=== PATIENT | female | born 1950 | race Caucasian/White ===

== ENCOUNTER 2018-02-05 10:40 | Outpatient (CLI) | payer MEDICARE, BC ==
[2016-06-04 19:35] VITALS: O2SAT 99
[2018-02-05 22:32] LABS: *RHEUMATOID FACTOR <10 IUnits/mL (<30)
[2018-02-07 07:06] LABS: *HLA-B27 Negative
[2018-02-07 10:23] LABS: *LYME DISEASE SCREEN Negative (Negative)
[2018-02-07 12:27] LABS: *ANA SCREEN 0.1 U
== END 2018-02-05 10:41 | disposition home or self-care (01) | DRG 556 ==
LOC: CONVCARE 10:40
PROVIDERS: ATTEND Orthopaedic Surgery
DX: M25.551 Pain in right hip (principal); M47.9 Spondylosis, unspecified; M70.61 Trochanteric bursitis, right hip
CPT/HCPCS: 36415; 72120; 73502; 85651

== ENCOUNTER 2018-02-27 07:07 | Day surgery (SDC) | payer MEDICARE, BC ==
[2018-02-27 07:44] VITALS: RESP 16
[2018-02-27] MEDS ORDERED: BUPIVACAINE HCL 0.5% MPF 10 ML SOL ONE (07:57)
[2018-02-27] MEDS: DEXAMETHASONE SOD PHOS PF 10 MG/ML SOL IJ ONE ×2 (08:12→08:27)
[2018-02-27 08:43] VITALS: PULSE 77; TEMP 97.4; O2SAT 98
[2018-02-27 09:00] VITALS: BP 160/91
== END 2018-02-27 09:03 | disposition home or self-care (01) | DRG 556 ==
LOC: SURG 07:07
PROVIDERS: ATTEND Nurse Anesthetist, Certified Registered
DX: M25.551 Pain in right hip (principal); E11.9 Type 2 diabetes mellitus without complications; M48.08 Spinal stenosis, sacral and sacrococcygeal region
CPT/HCPCS: 82962; J1100

== ENCOUNTER 2018-04-18 08:48 | Day surgery (SDC) | payer MEDICARE, BC ==
[2018-04-18] MEDS ORDERED: DIAZEPAM 5 MG TAB ONE (08:55)
[2018-04-18] MEDS ORDERED: LIDOCAINE HCL 1% MPF 30 SOL ONE (09:28)
[2018-04-18] MEDS ORDERED: LIDOCAINE HCL 2% MPF 10 ML SOL ONE (09:28)
[2018-04-18 09:38] VITALS: RESP 16
[2018-04-18 10:19] VITALS: BP 133/81; PULSE 72; TEMP 99.3; O2SAT 97
== END 2018-04-18 10:45 | disposition home or self-care (01) | DRG 554 ==
LOC: SURG 08:48
PROVIDERS: ATTEND Nurse Anesthetist, Certified Registered
DX: M12.88 Other specific arthropathies, not elsewhere classified, other specified site (principal)
CPT/HCPCS: A9270-GY; J2001

== ENCOUNTER 2018-04-25 14:36 | Day surgery (SDC) | payer MEDICARE, BC ==
[2018-04-25] MEDS ORDERED: DIAZEPAM 5 MG TAB ONE (14:47)
[2018-04-25] MEDS ORDERED: BUPIVACAINE HCL 0.5% MPF 10 ML SOL ONE (14:54)
[2018-04-25] MEDS ORDERED: LIDOCAINE HCL 1% MPF 30 SOL ONE (14:55)
[2018-04-25 15:49] VITALS: BP 162/84; PULSE 85; RESP 16; TEMP 99; O2SAT 95
== END 2018-04-25 16:06 | disposition home or self-care (01) | DRG 554 ==
LOC: SURG 14:36
PROVIDERS: ATTEND Nurse Anesthetist, Certified Registered
DX: M12.88 Other specific arthropathies, not elsewhere classified, other specified site (principal)
CPT/HCPCS: A9270-GY; J2001

== ENCOUNTER 2018-05-29 13:31 | Day surgery (SDC) | payer MEDICARE, BC ==
[2018-05-29] MEDS: FENTANYL 100MCG/2ML SOL ONE ×2 (11:59→15:23)
[2018-05-29] MEDS ORDERED: ONDANSETRON HCL 4 MG/2 ML SOL ONE (15:04)
[2018-05-29] MEDS ORDERED: ONDANSETRON HCL 4 MG/2 ML SOL IV ONE (15:09)
[2018-05-29] MEDS ORDERED: LIDOCAINE HCL 1% MPF 30 SOL ONE (15:12)
[2018-05-29] MEDS ORDERED: TRIAMCINOLONE ACETONIDE 40 MG/ML SUS ONE (15:12)
[2018-05-29] MEDS ORDERED: BUPIVACAINE HCL 0.25% MPF 30 ML SOL INFIL ONE (15:12)
[2018-05-29] MEDS ORDERED: LIDOCAINE HCL 2% MPF 10 ML SOL ONE (15:12)
[2018-05-29] MEDS: MIDAZOLAM 2 MG/2 ML SOL ONE ×2 (15:22→15:58)
[2018-05-29 16:37] VITALS: BP 100/56; PULSE 77; RESP 20; TEMP 97.4; O2SAT 96
== END 2018-05-29 16:55 | disposition home or self-care (01) | DRG 554 ==
LOC: SURG 13:31
PROVIDERS: ATTEND Nurse Anesthetist, Certified Registered
DX: M12.88 Other specific arthropathies, not elsewhere classified, other specified site (principal)
CPT/HCPCS: 82962; J2250; J2405; J3010; J2001; J3300

== ENCOUNTER 2018-06-06 13:19 | Day surgery (SDC) | payer MEDICARE, BC ==
[2018-06-06] MEDS ORDERED: SODIUM CHLORIDE 0.9% FLUSH 10 ML SOL IV ONE ×2 (14:08→14:15)
[2018-06-06] MEDS ORDERED: ONDANSETRON HCL 4 MG/2 ML SOL ONE (14:11)
[2018-06-06] MEDS ORDERED: LIDOCAINE HCL 2% MPF 10 ML SOL ONE (14:13)
[2018-06-06] MEDS ORDERED: BUPIVACAINE HCL 0.25% MPF 30 ML SOL INFIL ONE (14:13)
[2018-06-06] MEDS ORDERED: LIDOCAINE HCL 1% MPF 30 SOL ONE (14:13)
[2018-06-06] MEDS: FENTANYL 100MCG/2ML SOL ONE ×3 (14:25→15:20)
[2018-06-06] MEDS: MIDAZOLAM 2 MG/2 ML SOL ONE ×2 (14:25→14:51)
[2018-06-06] MEDS: TRIAMCINOLONE ACETONIDE 40 MG/ML SUS ONE ×2 (15:20→15:24)
[2018-06-06 15:40] VITALS: BP 134/68; PULSE 79; RESP 18; TEMP 97.1; O2SAT 98
== END 2018-06-06 16:02 | disposition home or self-care (01) | DRG 554 ==
LOC: SURG 13:19
PROVIDERS: ATTEND Nurse Anesthetist, Certified Registered
DX: M12.88 Other specific arthropathies, not elsewhere classified, other specified site (principal); E11.9 Type 2 diabetes mellitus without complications
CPT/HCPCS: J2250; J2405; J3010; J2001; J3300

== ENCOUNTER 2018-06-28 06:44 | Emergency (ER) | payer MEDICARE, BC ==
[2018-06-28 06:56] VITALS: TEMP 96.8
[2018-06-28] MEDS ORDERED: ONDANSETRON HCL 4 MG/2 ML SOL IV ONE (07:14)
[2018-06-28] MEDS ORDERED: SODIUM CHLORIDE 0.9% 1000ML 1,000 ML IV ONE (07:14)
[2018-06-28 07:30] LABS: BASOPHILS % (AUTO) 0 % (0-3); EOSINOPHILS % (AUTO) 1 % (0-9); HEMATOCRIT 39 % (35-47); LYMPHOCYTES % (AUTO) 9.9 % (10-50); MEAN CORPUSCULAR HEMOGLOBIN 28.5 pg (27.0-32.0); MEAN CORPUSCULAR HGB CONC 33.3 gm/dl (32.0-36.0); MEAN CORPUSCULAR VOLUME 86 fL (81-99); MONOCYTES % (AUTO) 3.9 % (0-12); NEUTROPHILS % (AUTO) 84.9 % (37-80)
[2018-06-28] MEDS ORDERED: ONDANSETRON HCL 4 MG/2 ML SOL ONE (07:32)
[2018-06-28 07:38] LABS: CALCIUM 8.9 mg/dl (8.5-10.1); CARBON DIOXIDE 26.8 mEq/L (21-32); CREATININE 0.62 mg/dl (0.60-1.00)
[2018-06-28 08:46] VITALS: BP 153/104; PULSE 90; RESP 20; O2SAT 96
== END 2018-06-28 08:35 | disposition home or self-care (01) | DRG 641 ==
LOC: ED 06:44
DX: E86.0 Dehydration (principal); E11.9 Type 2 diabetes mellitus without complications; R00.0 Tachycardia, unspecified
CPT/HCPCS: 36415; 80048; 85025; 96365; 96374; 99282; 99283; J2405

== ENCOUNTER 2018-10-01 03:29 | Inpatient (IN) | payer BC ==
[2018-10-01] MEDS ORDERED: MORPHINE SULFATE 10 MG/ML SOL IV ONE (03:46)
[2018-10-01] MEDS ORDERED: FENTANYL 100MCG/2ML SOL IV ONE ×2 (03:59→19:00)
[2018-10-01 04:01] LABS: BASOPHILS % (AUTO) 0 % (0-3); EOSINOPHILS % (AUTO) 0 % (0-9); HEMATOCRIT 33 % (35-47); LYMPHOCYTES % (AUTO) 3.1 % (10-50); MEAN CORPUSCULAR VOLUME 82 fL (81-99); MONOCYTES % (AUTO) 3.7 % (0-12); NEUTROPHILS % (AUTO) 92.9 % (37-80)
[2018-10-01] MEDS ORDERED: FENTANYL 100MCG/2ML SOL ONE ×2 (04:05→16:45)
[2018-10-01] MEDS ORDERED: SODIUM CHLORIDE 0.9% 1000ML 1,000 ML IV SCH (04:15)
[2018-10-01 04:19] LABS: ALBUMIN 2.8 gm/dl (3.4-5.0); BILIRUBIN,TOTAL 1.7 mg/dl (0.2-1.0); CARBON DIOXIDE 25.2 mEq/L (21-32); CREATININE 0.94 mg/dl (0.60-1.00); POTASSIUM 3.7 mMol/L (3.5-5.1); TOTAL PROTEIN 6.2 gm/dl (6.4-8.2)
[2018-10-01] MEDS ORDERED: CEFTRIAXONE 1 GM PDS 2 GM in SODIUM CHLORIDE 0.9% 100 ML 100 ML IV ONE (05:57)
[2018-10-01] MEDS ORDERED: ONDANSETRON HCL 4 MG/2 ML SOL IV PRN ×2 (05:58→09:13)
[2018-10-01] MEDS: SODIUM CHLORIDE 0.9% 1000ML 1,000 ML IV SCH ×3 (06:00→15:40)
[2018-10-01] MEDS ORDERED: CEFTRIAXONE 1 GM PDS ONE ×2 (06:20→06:22)
[2018-10-01 06:37] LABS: APPEARANCE,URINE Cloudy; BILIRUBIN,URINE 2+ (NEGATIVE); COLOR,URINE Red; GLUCOSE, URINE (UA) 2+ (NEGATIVE); KETONES,URINE 1+ (NEGATIVE); LEUKOCYTE ESTERASE ,URINE 3+ (NEGATIVE); NITRATE,URINE POSITIVE (NEGATIVE); OCCULT BLOOD,URINE 3+ (NEG-TRACE)
[2018-10-01 06:50] LABS: LACTIC ACID 1.1 mMol/L (0.0-2.0)
[2018-10-01] MEDS ORDERED: KETOROLAC TROMETHAMINE 30 MG/ML SOL IV ONE (06:56)
[2018-10-01] MEDS ORDERED: KETOROLAC TROMETHAMINE 30 MG/ML SOL ONE (06:57)
[2018-10-01 06:58] LABS: BACTERIA UNABLE (< 1+); CRYSTALS UNABLE (0-3 AVE/HPF); EPITHELIAL CELLS UNABLE TO QUANTITATE (SQUAMOUS); RBC,URINE PACKED FIELDS (0-3AV/HPF); WBC,URINE PACKED FIELDS (0-5AV/HPF)
[2018-10-01 07:00] LABS: ALCOHOL < 0.003 gm/dl (0.000-0.08); TROP I < 0.017 ng/ml (0.000-0.056)
[2018-10-01 07:09] LABS: ICTOTEST,URINE NEGATIVE (NEGATIVE)
[2018-10-01] MEDS ORDERED: NOVOLOG 70/30 FLEXPEN SC ONE (07:10)
[2018-10-01] MEDS ORDERED: NOVOLOG FLEXPEN SC SCH ×2 (08:00→12:00)
[2018-10-01] MEDS ORDERED: APAP/HYDROCODONE 1 EACH TABLET PO PRN (09:12)
[2018-10-01] MEDS ORDERED: SODIUM CHLORIDE 0.9% 500 ML SOL IV ONE (10:48)
[2018-10-01] MEDS ORDERED: NOVOLOG FLEXPEN SC ONE (10:50)
[2018-10-01] MEDS ORDERED: ACETAMINOPHEN 500 MG 500 MG TAB PO PRN (12:06)
[2018-10-01] MEDS ORDERED: MECLIZINE HYDROCHLORIDE 12.5 MG TAB PO PRN (12:06)
[2018-10-01] MEDS ORDERED: IPRATROPIUM BROMIDE NS PRN (12:06)
[2018-10-01] MEDS: NOVOLOG FLEXPEN SC SCH ×3 (12:10→14:13)
[2018-10-01 14:18] VITALS: RESP 24
[2018-10-01] MEDS ORDERED: METOPROLOL TARTRATE 50 MG TAB PO ONE (15:00)
[2018-10-01] MEDS ORDERED: ENOXAPARIN 100 MG SOL SC SCH (16:00)
[2018-10-01] MEDS ORDERED: DEXTROSE 50% 1 VIAL SOL IV ONE (16:41)
[2018-10-01 16:44] LABS: BASOPHILS % (AUTO) 0 % (0-3); EOSINOPHILS % (AUTO) 1 % (0-9); HEMATOCRIT 34 % (35-47); LYMPHOCYTES % (AUTO) 3.1 % (10-50); MEAN CORPUSCULAR HEMOGLOBIN 26.8 pg (27.0-32.0); MEAN CORPUSCULAR HGB CONC 32.3 gm/dl (32.0-36.0); MEAN CORPUSCULAR VOLUME 83 fL (81-99); MONOCYTES % (AUTO) 1.8 % (0-12)
[2018-10-01 16:45] LABS: LACTIC ACID 5.6 mMol/L (0.0-2.0)
[2018-10-01] MEDS ORDERED: SODIUM CHLORIDE 0.9% 1000ML 1,000 ML IV ONE (16:50)
[2018-10-01 17:00] LABS: CALCIUM 7.9 mg/dl (8.5-10.1); CREATININE 1.54 mg/dl (0.60-1.00); POTASSIUM 3.8 mMol/L (3.5-5.1); TROP I 0.017 ng/ml (0.000-0.056)
[2018-10-01] MEDS ORDERED: MIDAZOLAM 2 MG/2 ML SOL IV ONE (17:00)
[2018-10-01] MEDS ORDERED: SODIUM CHLORIDE 0.9% FLUSH 10 ML SOL IV PRN (17:00)
[2018-10-01] MEDS: EPINEPHRINE HCL 0.1 MG/ML SOL IV PRN ×6 (17:07→17:37)
[2018-10-01] MEDS ORDERED: NOREPINEPHRINE BITARTRATE 4 MG/4 ML SOL IV ONE (17:20)
[2018-10-01] MEDS ORDERED: SODIUM BICARBONATE 8.4%(ADULT) 1 MEQ/ML SOL IV ONE (17:30)
[2018-10-01] MEDS ORDERED: METFORMIN HYDROCHLORIDE 500 MG TAB PO SCH (17:30)
[2018-10-01] MEDS ORDERED: NOREPINEPHRINE 4 MG/4 ML 4 MG in DEXTROSE 500 ML 500 ML IV SCH (17:30)
[2018-10-01] MEDS ORDERED: MIDAZOLAM 2 MG/2 ML SOL ONE (17:30)
[2018-10-01 17:58] LABS: ABG PH 6.92 (7.35-7.45)
[2018-10-01 18:58] VITALS: BP 137/85
[2018-10-01 19:02] VITALS: TEMP 99.8
[2018-10-01] MEDS ORDERED: AMIODARONE 50 MG/ML SOL ONE (20:06)
[2018-10-01] MEDS ORDERED: EPINEPHRINE IV ONE (20:15)
[2018-10-01] MEDS ORDERED: AMIODARONE 50 MG/ML SOL IVP ONE (20:15)
[2018-10-01] MEDS ORDERED: SODIUM CHLORIDE 0.9% IV ONE (20:15)
[2018-10-01 20:36] VITALS: PULSE 90; O2SAT 15
[2018-10-02] MEDS ORDERED: FERROUS GLUCONATE 324 MG TABLET PO SCH (09:00)
[2018-10-02] MEDS ORDERED: ASPIRIN EC 81 MG PO SCH (09:00)
[2018-10-02] MEDS ORDERED: PANTOPRAZOLE SODIUM 40 MG ECT PO SCH (09:00)
[2018-10-02] MEDS ORDERED: IPRATROPIUM BROMIDE NAS SCH (09:00)
[2018-10-02] MEDS ORDERED: CETIRIZINE HYDROCHLORIDE 10 MG TAB PO SCH (09:00)
[2018-10-02] MEDS ORDERED: CEFTRIAXONE 1 GM PDS 1 GM in SODIUM CHLORIDE 0.9% 50 ML 50 ML IV SCH (09:15)
== END 2018-10-01 23:35 | disposition expired | DRG 689 ==
LOC: ED 03:29 → ACUTE CARE 07:48 → UNDOADMIN 07:48 → ACUTE CARE 09:10
PROVIDERS: ADMIT Internal Medicine; ATTEND Internal Medicine
DX: K80.00 Calculus of gallbladder with acute cholecystitis without obstruction (principal); N10 Acute pyelonephritis; I46.9 Cardiac arrest, cause unspecified; R10.11 Right upper quadrant pain; A41.9 Sepsis, unspecified organism; I50.9 Heart failure, unspecified; K74.69 Other cirrhosis of liver; R40.20 Unspecified coma; E87.1 Hypo-osmolality and hyponatremia; N39.0 Urinary tract infection, site not specified; R11.2 Nausea with vomiting, unspecified; R19.7 Diarrhea, unspecified; E86.0 Dehydration; E11.9 Type 2 diabetes mellitus without complications; I10 Essential (primary) hypertension; E66.01 Morbid (severe) obesity due to excess calories; Z79.4 Long term (current) use of insulin; R47.89 Other speech disturbances; I95.9 Hypotension, unspecified; R00.0 Tachycardia, unspecified; R53.1 Weakness; R41.0 Disorientation, unspecified
CPT/HCPCS: 36415; 36600; 71045; 74176; 80048; 80053; 80307; 81001; 82150; 82803; 82962; 83880; 84484; 85025; 87040; 87077; 87088; 87186; 93005; 93012; 96365; 96366; 96374; 96375; 99070; 99236; 99285; J0282; J0696; J1650; J1885; J2250; J2405; J3010; A9270-GY; J1815; J3490